=== PATIENT | female | born 1985 | race Caucasian/White ===

== ENCOUNTER 2020-12-16 13:32 | Emergency (ER) | payer OTHER ==
[2020-12-16] MEDS ORDERED: MOBIC15 MG PO (15:41)
[2020-12-16] MEDS ORDERED: ROBAXIN 750 MG750 MG PO (15:41)
[2020-12-16] MEDS ORDERED: ASPERCREME LID1 EACH TP (15:41)
== END 2020-12-16 15:52 | disposition home or self-care (01) ==
LOC: ER1 13:32
DX: M54.50 Low back pain, unspecified (principal); M25.551 Pain in right hip; F17.210 Nicotine dependence, cigarettes, uncomplicated; Z88.8 Allergy status to other drugs, medicaments and biological substances; Z98.890 Other specified postprocedural states
CPT/HCPCS: 72100; 73502; 99283